=== PATIENT | female | born 1980 | race Caucasian/White ===

== ENCOUNTER → 2021-12-04 | Outpatient (CLI) | payer BC ==
--- NOTE | 2021-12-04 10:24 | Diagnostic Imaging Report ---
PROCEDURE: US Thyroid. TECHNIQUE: Multiple real-time grayscale images were obtained of the thyroid in various projections. INDICATION: Hyperthyroidism. FINDINGS: The right lobe measures 4.7 x 1.4 x 1.5 cm. Left lobe measures 5.5 x 1.8 x 2.2 cm. The lobes are heterogeneous. There is a small hypoechoic nodule, oval, well-circumscribed in the midportion of the right lobe measuring 3 x 2 mm. No associated calcification. IMPRESSION: There is a single hypoechoic 3 mm nodule right lobe considered low likelihood for malignancy. Recommend one-year ultrasound follow-up. TI-RADS 3. Dictated by: Dictated on workstation # [id number]
== END ==
LOC: RAD 07:44
PROVIDERS: ATTEND Obstetrics & Gynecology
DX: E05.90 Thyrotoxicosis, unspecified without thyrotoxic crisis or storm (principal); E04.1 Nontoxic single thyroid nodule
CPT/HCPCS: 76536

== ENCOUNTER 2022-02-10 05:28 | Outpatient (CLI) | payer BC ==
[~2022-02-10] VITALS: Ht 160 cm; Wt 85.0 kg
[2022-02-10] MEDS ORDERED: PROP50TA2 PO (17:12)
[2022-02-10] MEDS ORDERED: BISA-65 PO (17:12)
== END 2022-02-10 17:20 | disposition home or self-care (01) ==
LOC: PREOP 05:28
PROVIDERS: ATTEND Surgery
DX: Z01.818 Encounter for other preprocedural examination (principal)

== ENCOUNTER 2022-02-17 11:30 | Day surgery (SDC) | payer BC ==
[2022-02-17] VITALS (10 sets, daily range): BP systolic 100–128; BP diastolic 51–78
[~2022-02-17] VITALS: Ht 160 cm; Wt 83.9 kg
[~2022-02-17 11:30] MED LIST: BISA-65 PO; PROP50TA2 PO
[2022-02-17] MEDS ORDERED: LACTATED RINGERS 1,000 ML IV PRN (12:15)
[2022-02-17] MEDS ORDERED: ceFAZolin INJECTION 2,000 MG in NS (IVPB) 50 ML IV ONE (12:15)
--- NOTE | 2022-02-17 12:54 | Progress Note-Pre Operative ---
Pre-Operative Progress Note Date of Available H&P: Jan 28, 2022 Date H&P Reviewed: Feb 17, 2022 Time H&P Reviewed: 12:51 History & Physical: H&P Reviewed, Patient Examed, No changes noted Pre-Operative Diagnosis: Anal fissure SYLVIA COLEMAN DO Feb 17, 2022 12:54
[2022-02-17] MEDS ORDERED: fentaNYL INJ 100 MCG/2 ML AMP ONE (13:48)
[2022-02-17] MEDS ORDERED: LIDOCAINE PF 2% 5 ML (XYLOCAINE) VIAL ONE (13:48)
[2022-02-17] MEDS ORDERED: proPOfol 200 MG/20 ML (DIPRIVAN) VIAL IV ONE (13:48)
[2022-02-17] MEDS ORDERED: MIDAZOLAM 2 MG/2 ML (VERSED) VIAL ONE (13:49)
[2022-02-17] MEDS ORDERED: ONDANSETRON 4 MG/2 ML (SDV) Z0FRAN ONE (13:49)
[2022-02-17] MEDS ORDERED: BUP/EPI 0.5% 1:200,000 (MARCAINE) 10ML VIAL IJ ONE (14:01)
[2022-02-17] MEDS ORDERED: DOCU-143 PO (14:42)
[2022-02-17] MEDS ORDERED: SEVOFLURANE (ULTANE) 15 ML INHAL SOLN ONE (14:42)
--- NOTE | 2022-02-17 14:42 | Progress Note-Post Operative ---
Post-Operative Progess Note Surgeon (s)/Chemical Tester (s) Surgeon SYLVIA COLEMAN DO Chemical Tester: JIMMY Frank Pre-Operative Diagnosis Anal fissure Post-Operative Diagnosis same with tight anal sphincter Procedure & Operative Findings Date of Procedure 02/17/22 Procedure Performed/Findings Partial Lateral Internal Sphincterotomy Rectal exam under anesthesia Anesthesia Type LMA Estimated Blood Loss Estimated blood loss (mL): scant Specimens/Packing Specimens Removed none SYLVIA COLEMAN DO Feb 17, 2022 14:42
--- NOTE | 2022-02-17 14:43 | Discharge Inst-Surgical ---
Discharge Inst-Surgical Depart Medication/Instructions New, Converted or Re-Newed RX: Transmitted to Pharmacy Patient Instructions Follow up Appt: Make appointment for 1 week. [phone] Instructions: No lifting greater than 20 pounds. No strenuous activity. May shower in 24 hours, no tub bath or soaking. Use incentive spirometer at home as directed. No Smoking Symptoms to Report: Appetite Changes, Extremity Discoloration, Numbness/Tingling, Swelling Increased, Bleeding Excessive, Eyesight Changes, Pain Increased, Urine Color Change, Constipation(Persistent), Fever over 101 degree F, Pain/Pressure in chest, Urinating Difficulty, Cough Up/Vomit Blood, Heart Beat Irreg/Pounding, Pain/Pressure in jaw, Cramps in feet or legs, Lightheadedness, Pain/Pressure in shoulder, Diarrhea(Persistent), Memory Changes Suddenly, Questions/Concerns, Weight gain consecutive days, Dizziness/Fainting, Nausea/Vomiting, Shortness of Breath, Weight gain over 2 pounds If questions or concerns contact your physician Or seek help at emergency department. Activity Activity as Tolerated: Yes Activity Instructions: Avoid Stress to Incision Driving Instructions: You May Drive Diet Discharge Diet: No Restrictions (increased fluids) Diet After 24 Hours: Clear Liquid if Nauseous If Any Problems/Questions/Issu: Contact Your Physician, Go to Emergency Room Skin/Wound Care Infection Signs and Symptoms: Increased Redness, Foul Odor of Wound, Increased Drainage, Skin Itchy or Has a Rash, Increased Swelling, Temperature Above 101 F Bathing Instructions: Tub, Shower SYLVIA COLEMAN DO Feb 17, 2022 14:43
--- NOTE | 2022-02-17 14:54 | Anesthesia-General Post-Op ---
General Patient Condition Mental Status/LOC: Same as Preop Cardiovascular: Satisfactory Nausea/Vomiting: Absent Respiratory: Satisfactory Pain: Controlled Complications: Absent Post Op Complications Complications None Follow Up Care/Instructions Patient Instructions None needed. Anesthesia/Patient Condition Patient Condition Patient is doing well, no complaints, stable vital signs, no apparent adverse anesthesia problems. No complications reported per nursing. GALLO SAGE DO Feb 17, 2022 14:54
[2022-02-17] MEDS ORDERED: ONDANSETRON 4 MG/2 ML (SDV) Z0FRAN IVP PRN (15:00)
[2022-02-17] MEDS ORDERED: morphine INJ 10 MG/ML 1ML (SYR OR VIAL) IVP ONE (15:00)
--- NOTE | 2022-02-18 21:08 | OPERATIVE REPORT ---
DATE OF SERVICE: 02/17/2022 PREOPERATIVE DIAGNOSIS: Anal fissure. POSTOPERATIVE DIAGNOSES: 1. Anal fissure. 2. Tight anal sphincter. PROCEDURES: 1. Partial lateral internal sphincterotomy. 2. Rectal exam under anesthesia with proctoscopy. SURGEON: Ronan De Luna DO. ORTHOPEDIC PHYSICIAN ASSISTANT: . ANESTHESIA: LMA. SPECIMENS: None. BLOOD LOSS: Scant. FLUIDS: Per anesthesia. POSTOPERATIVE CONDITION: Stable. INDICATIONS FOR PROCEDURE: The patient is a 41-year-old female, who has been having rectal pain with occasional blood on the toilet paper and diagnosed with possible anal fissure. FINDINGS: The patient had an anal fissure. Nothing seen in the rectum. DESCRIPTION OF PROCEDURE: After informed consent was obtained, the patient was brought to the operating room and placed on the table in the lithotomy position. She was sterilely prepped and draped in normal fashion. I started by doing a proctoscopy, placed a rigid sigmoidoscope into the rectum, insufflated the rectum and looked around, did not see anything obvious. Some very minimal internal hemorrhoids. Then, did a digital rectal exam and did not feel anything on the inside and then while inspecting the outside of the anus, saw an anal fissure and at this point, then I elected to do a partial lateral internal sphincterotomy at about the 5 o'clock position, infiltrated with local. I then made a small incision with #15 blade, carried down through the skin and then bluntly dissected with a hemostat getting around the internal anal sphincter, then cut half of the internal sphincter with Bovie electrocautery, then dropped this back in. At this point, then cleaned the area and was done. Sponge, instrument, and needle counts were correct at the end of the case. Job ID: [id number] DocumentID: [id number] Dictated Date: 02/18/2022 13:32:56 Heating And Ventilating Tender Date: 02/18/2022 21:06:00 Dictated By: RONAN DE LUNA DO
== END 2022-02-17 16:30 ==
LOC: SDC 11:30
PROVIDERS: ATTEND Surgery
DX: K60.2 Anal fissure, unspecified (principal); K62.4 Stenosis of anus and rectum; Z87.891 Personal history of nicotine dependence
CPT/HCPCS: 84703; 87081